=== PATIENT | male | born 1960 | race Caucasian/White ===

== ENCOUNTER 2016-06-11 12:44 | Emergency (ER) | payer OTHER ==
[~2016-06-11] VITALS: Ht 167.6 cm; Wt 64.5 kg
[~2016-06-11 12:44] MED LIST: BACLOFEN10 MG PO; PROAIR HFA8.5 GM IH; ULTRAM50 MG PO
[2016-06-11 13:42] LABS: EOSINOPHIL COUNT 0.2 K/uL (0-0.3); HEMATOCRIT 44.5 % (38.0-50.0); IMMATURE GRANULOCYTE (%) 0.1 % (0.0-0.7); IMMATURE GRANULOCYTE COUNT 0.1 K/uL; LYMPHOCYTE COUNT 1.4 K/uL (1.0-2.8); MCH 34.4 PG (29.0-34.0); MCHC 34.6 G/DL (30.0-36.0); MCV 99.3 FL (86-99); MEAN PLAT.VOLUME 9.1 uM^3 (9.0-12.4); MONOCYTE COUNT 0.5 K/uL (0-0.8); NEUTROPHIL (%) 73.2 % (45-76); NEUTROPHIL COUNT 5.7 K/uL (1.8-6.4); PLATELET COUNT 306 K/uL (156-360); RBC DIS.WIDTH-CV 11.9 % (11.8-14.6); RBC DIS.WIDTH-SD 42.6 % (39-53); RED BLOOD COUNT 4.48 M/uL (4.00-5.50); WHITE BLOOD COUNT 7.9 K/uL (4.1-10.2)
[2016-06-11 13:54] LABS: CHLORIDE 103 mEq/L (99-109); POTASSIUM 4.4 mEq/L (3.7-5.4); SODIUM 135 mEq/L (136-147)
[2016-06-11 13:56] LABS: GLUCOSE 103 mg/dL (70-99)
[2016-06-11 13:57] LABS: ANION GAP 8 MEQ/L (2-14)
[2016-06-11 14:00] LABS: GFR ESTIMATE (CALCULATED) > 59 mL/min/
[2016-06-11 14:01] LABS: UREA NITROGEN (BUN) 9 mg/dL (9-23)
[2016-06-11 15:36] LABS: ADD MIUA? NO; BILIRUBIN NEGATIVE; BLOOD NEGATIVE; COLOR YELLOW ((YELLOW)); GLUCOSE (STRIP) NEGATIVE; KETONES NEGATIVE; LEUKOCYTES NEGATIVE; NITRITE NEGATIVE; PH, URINE 7.5 (5-8); PROTEIN (STRIP) NEGATIVE; SPECIFIC GRAVITY 1.018 (1.000-1.030); UCUL ADDED? NO; UROBILINOGEN 0.2 MG/DL (0.2-1.0)
[2016-06-11] MEDS ORDERED: BACTRIM,SEPT1 TABLET PO (16:59)
[2016-06-11] MEDS ORDERED: OXYCODONE HCL5 MG PO (17:04)
[2016-06-11] MEDS ORDERED: DOCUSATE SODIU100 MG PO (17:04)
[2016-06-11] MEDS ORDERED: ENOXAPARIN40 MG/0.4 SC (17:05)
[2016-06-11] MEDS ORDERED: AMLODIPINE-VAL1 EACH PO (17:05)
[2016-06-11 18:15] VITALS: BP 141/85
== END 2016-06-11 18:38 | disposition home or self-care (01) ==
LOC: EME 12:44
DX: R50.9 Fever, unspecified (principal); Z98.890 Other specified postprocedural states; I10 Essential (primary) hypertension; Z85.830 Personal history of malignant neoplasm of bone; F17.200 Nicotine dependence, unspecified, uncomplicated
CPT/HCPCS: 71010; 80048; 81003; 83605; 85025; 87040; 99281; 99284

== ENCOUNTER 2017-06-27 04:30 | Inpatient (IN) | payer OTHER ==
[~2017-06-27] VITALS: Ht 167.6 cm; Wt 113.0 kg
[~2017-06-27 04:30] MED LIST changes: +AMLODIPINE-VAL1 EACH PO; +BACTRIM,SEPT1 TABLET PO; +DOCUSATE SODIU100 MG PO; +ENOXAPARIN40 MG/0.4 SC; +OXYCODONE HCL5 MG PO; +VALIUM5 MG PO
[2017-06-27 05:43] LABS: MCH 34.9 PG (29.0-34.0); MCHC 34.7 G/DL (30.0-36.0); MCV 100.6 FL (86-99); PLATELET COUNT 165 K/uL (156-360); RBC DIS.WIDTH-CV 12.6 % (11.8-14.6); RBC DIS.WIDTH-SD 47.8 % (39-53); RED BLOOD COUNT 4.87 M/uL (4.00-5.50); WHITE BLOOD COUNT 8.1 K/uL (4.1-10.2)
[2017-06-27 05:58] LABS: TROP-I INTERPRETATION NEGATIVE; TROPONIN-I 0.05 ng/mL (0.0-0.30)
[2017-06-27 06:06] LABS: CHLORIDE 99 mEq/L (99-109); POTASSIUM 3.8 mEq/L (3.7-5.4); SODIUM 135 mEq/L (136-147)
[2017-06-27 06:07] LABS: GLUCOSE 129 mg/dL (70-99)
[2017-06-27 06:11] LABS: CREATININE 0.7 mg/dL (0.6-1.3); GFR ESTIMATE (CALCULATED) > 59 mL/min/ (58.99-99999)
[2017-06-27 06:12] LABS: UREA NITROGEN (BUN) 8 mg/dL (9-23)
[2017-06-27] MEDS ORDERED: PERCOCET 5/31 TABLET PO (06:20)
[2017-06-27] MEDS ORDERED: OXYCONTIN20 MG PO (06:21)
[2017-06-27 16:29] VITALS: BP 149/88
[2017-06-27 19:59] VITALS: BP 118/76
[2017-06-27 23:37] VITALS: BP 120/63
[2017-06-28 07:14] LABS: HEMATOCRIT 44.4 % (38.0-50.0); HEMOGLOBIN 14.7 G/DL (12.5-16.6); MCH 34.3 PG (29.0-34.0); MCHC 33.1 G/DL (30.0-36.0); MCV 103.5 FL (86-99); PLATELET COUNT 153 K/uL (156-360); RBC DIS.WIDTH-CV 12.9 % (11.8-14.6); RBC DIS.WIDTH-SD 49.6 % (39-53); RED BLOOD COUNT 4.29 M/uL (4.00-5.50); WHITE BLOOD COUNT 5.6 K/uL (4.1-10.2)
[2017-06-28 07:22] LABS: ALBUMIN 3.3 G/DL (3.2-4.8); ALKALINE PHOSPHATASE 40 IU/L (3-129); ALT (GPT) 10 IU/L (3-49); AST (GOT) 11 IU/L (2-34); CHLORIDE 101 MEQ/L (99-109); CREATININE 0.7 MG/DL (0.6-1.3); DIRECT BILIRUBIN 0.1 mg/dL (0.0-0.3); GFR ESTIMATE (CALCULATED) > 59 mL/min/ (58.99-99999); POTASSIUM 3.6 MEQ/L (3.7-5.4); SODIUM 135 MEQ/L (136-147); TOTAL BILIRUBIN 0.2 MG/DL (0.0-1.0); TOTAL PROTEIN 5.8 G/DL (6.4-8.3); UREA NITROGEN (BUN) 10 mg/dL (9-23)
[2017-06-28 07:32] LABS: GLUCOSE 210 mg/dL (70-99)
[2017-06-28 07:47] VITALS: BP 110/67
[2017-06-28 11:02] LABS: MAGNESIUM 2.2 mg/dl (1.3-2.7)
[2017-06-28 11:08] LABS: PHOSPHORUS 1.9 mg/dL (2.5-4.9)
[2017-06-28 11:10] LABS: INTACT PARATHYROID HORMONE 80 pg/mL (10-69)
[2017-06-28 16:30] VITALS: BP 122/72
[2017-06-28 19:50] VITALS: BP 145/70
[2017-06-28 23:55] VITALS: BP 123/63
[2017-06-29 06:29] LABS: HEMOGLOBIN 14.6 G/DL (12.5-16.6); MCH 33.4 PG (29.0-34.0); MCHC 32.4 G/DL (30.0-36.0); PLATELET COUNT 162 K/uL (156-360); RBC DIS.WIDTH-CV 12.9 % (11.8-14.6); RBC DIS.WIDTH-SD 49.4 % (39-53); RED BLOOD COUNT 4.37 M/uL (4.00-5.50); WHITE BLOOD COUNT 9.8 K/uL (4.1-10.2)
[2017-06-29 06:58] LABS: CHLORIDE 101 MEQ/L (99-109); CREATININE 0.7 MG/DL (0.6-1.3); GFR ESTIMATE (CALCULATED) > 59 mL/min/ (58.99-99999); GLUCOSE 164 mg/dL (70-99); MAGNESIUM 1.9 mg/dl (1.3-2.7); POTASSIUM 3.6 MEQ/L (3.7-5.4); SODIUM 139 MEQ/L (136-147); UREA NITROGEN (BUN) 12 mg/dL (9-23)
[2017-06-29 08:17] VITALS: BP 129/73
[2017-06-29 16:08] VITALS: BP 116/64
[2017-06-30 00:54] VITALS: BP 146/76
[2017-06-30 08:43] VITALS: BP 156/45
[2017-06-30 13:01] VITALS: BP 138/68
[2017-06-30 17:00] VITALS: BP 149/84
[2017-06-30 23:49] VITALS: BP 150/88
[2017-07-01 06:06] LABS: CHLORIDE 96 MEQ/L (99-109); CREATININE 0.7 MG/DL (0.6-1.3); GFR ESTIMATE (CALCULATED) > 59 mL/min/ (58.99-99999); GLUCOSE 138 mg/dL (70-99); POTASSIUM 3.8 MEQ/L (3.7-5.4); SODIUM 138 MEQ/L (136-147); UREA NITROGEN (BUN) 12 mg/dL (9-23)
[2017-07-01 06:12] LABS: BASOPHIL (%) 0.2 % (0-1); EOSINOPHIL (%) 0 % (0-5); HEMATOCRIT 45.6 % (38.0-50.0); IMMATURE GRANULOCYTE (%) 0.2 % (0.0-0.7); LYMPHOCYTE (%) 17.2 % (15-42); MCHC 32.9 G/DL (30.0-36.0); MCV 103.4 FL (86-99); MONOCYTE (%) 8.8 % (3-12); MONOCYTE COUNT 0.5 K/uL (0-0.8); NEUTROPHIL (%) 73.6 % (45-76); NEUTROPHIL COUNT 4.2 K/uL (1.8-6.4); PLATELET COUNT 149 K/uL (156-360); RBC DIS.WIDTH-CV 12.8 % (11.8-14.6); RBC DIS.WIDTH-SD 49.2 % (39-53); RED BLOOD COUNT 4.41 M/uL (4.00-5.50); WHITE BLOOD COUNT 5.7 K/uL (4.1-10.2)
[2017-07-01 09:03] VITALS: BP 155/83
[2017-07-01] MEDS ORDERED: SPIRIVA1 INHALATI IH (09:59)
[2017-07-01] MEDS ORDERED: ADVAIR 250/501 DISK IH (09:59)
[2017-07-01] MEDS ORDERED: PHOSPHA250 MG PO (09:59)
[2017-07-01] MEDS ORDERED: CALCIUM 600+D1 EAC1 PO (09:59)
[2017-07-01] MEDS ORDERED: PREDNISONE5 M1 PO (09:59)
[2017-07-01] MEDS ORDERED: INCRUSE ELLI62.5 MCG IH (13:10)
== END 2017-07-01 14:10 | disposition home health service (06) | DRG 190 ==
LOC: EME → EDBD 04:30 → EDOF 07:26 → 5SOUTH 07:26 → EDOF 07:31 → ENRESERV 07:31 → 5SOUTH 15:26 → ENPENDDIS 07-01 12:05 → 5SOUTH 07-01 14:10
PROVIDERS: Emergency Medicine Emergency Medical Services; Internal Medicine; Physician Assistant
DX: J44.1 Chronic obstructive pulmonary disease with (acute) exacerbation (principal); J96.01 Acute respiratory failure with hypoxia; J44.0 Chronic obstructive pulmonary disease with (acute) lower respiratory infection; J20.9 Acute bronchitis, unspecified; C79.51 Secondary malignant neoplasm of bone; E83.51 Hypocalcemia; E87.6 Hypokalemia; I10 Essential (primary) hypertension; F17.210 Nicotine dependence, cigarettes, uncomplicated; Z85.118 Personal history of other malignant neoplasm of bronchus and lung; Z92.21 Personal history of antineoplastic chemotherapy; Z92.3 Personal history of irradiation
CPT/HCPCS: 71046; 71275; 80048; 80076; 82306; 83605; 83735; 83880; 83970; 84100; 84484; 85025; 85027; 87040; 94640; 94640 76; 94644; 94760; 94799; 99202; 99281; 99284; J0295; J0456; J0610; J1650; J2405; J2920; J2930; J3475; J7040; J7050; J7512; J7644

== ENCOUNTER 2017-10-21 09:34 | Emergency (ER) | payer OTHER ==
[~2017-10-21] VITALS: Ht 167.6 cm; Wt 54.6 kg
[~2017-10-21 09:34] MED LIST changes: +ADVAIR 250/501 DISK IH; +CALCIUM 600+D1 EAC1 PO; +INCRUSE ELLI62.5 MCG IH; +OXYCONTIN20 MG PO; +PERCOCET 5/31 TABLET PO; +PHOSPHA250 MG PO; +PREDNISONE5 M1 PO; +SPIRIVA1 INHALATI IH
[2017-10-21 10:09] LABS: BASOPHIL (%) 0.3 % (0-1); EOSINOPHIL (%) 1.8 % (0-5); EOSINOPHIL COUNT 0.2 K/uL (0-0.3); HEMATOCRIT 45.9 % (38.0-50.0); HEMOGLOBIN 16.3 G/DL (12.5-16.6); IMMATURE GRANULOCYTE (%) 0.2 % (0.0-0.7); LYMPHOCYTE (%) 8.7 % (15-42); LYMPHOCYTE COUNT 0.8 K/uL (1.0-2.8); MCHC 35.5 G/DL (30.0-36.0); MCV 98.5 FL (86-99); MONOCYTE (%) 5.4 % (3-12); MONOCYTE COUNT 0.5 K/uL (0-0.8); NEUTROPHIL (%) 83.6 % (45-76); NEUTROPHIL COUNT 7.4 K/uL (1.8-6.4); RBC DIS.WIDTH-CV 11.5 % (11.8-14.6); RBC DIS.WIDTH-SD 41.9 % (39-53); RED BLOOD COUNT 4.66 M/uL (4.00-5.50); WHITE BLOOD COUNT 8.9 K/uL (4.1-10.2)
[2017-10-21 10:18] LABS: PTT 28.5 SEC (25-37)
[2017-10-21 10:21] LABS: CHLORIDE 102 mEq/L (99-109); POTASSIUM 4.2 mEq/L (3.7-5.4); SODIUM 137 mEq/L (136-147)
[2017-10-21 10:22] LABS: GLUCOSE 103 mg/dL (70-99)
[2017-10-21 10:26] LABS: CREATININE 0.7 mg/dL (0.6-1.3); GFR ESTIMATE (CALCULATED) > 59 mL/min/ (58.99-99999)
[2017-10-21 10:27] LABS: UREA NITROGEN (BUN) 16 mg/dL (9-23)
[2017-10-21 10:31] LABS: TROP-I INTERPRETATION NEGATIVE; TROPONIN-I < 0.01 ng/mL (0.0-0.30)
[2017-10-21 10:51] LABS: PLAT.SUFFICIENCY ADEQUATE; PLATELET COUNT 183 K/uL (156-360)
[2017-10-21 12:45] LABS: TROP-I INTERPRETATION NEGATIVE; TROPONIN-I < 0.01 ng/mL (0.0-0.30)
[2017-10-21] MEDS ORDERED: TYLENOL WITH C1 EACH PO (13:00)
[2017-10-21 13:34] VITALS: BP 148/90
== END 2017-10-21 13:35 | disposition home or self-care (01) ==
LOC: EME → EDBD 09:34 → EME 13:35
PROVIDERS: Emergency Medicine
DX: R07.89 Other chest pain (principal); J44.1 Chronic obstructive pulmonary disease with (acute) exacerbation; Z85.118 Personal history of other malignant neoplasm of bronchus and lung; Z72.0 Tobacco use; I10 Essential (primary) hypertension; Z88.6 Allergy status to analgesic agent
CPT/HCPCS: 71045; 80048; 84484; 85025; 85610; 85730; 93005; 94640; 99281; 99284

== ENCOUNTER 2018-01-03 12:01 | Emergency (ER) | payer OTHER ==
[~2018-01-03] VITALS: Ht 165.1 cm; Wt 49.8 kg
[~2018-01-03 12:01] MED LIST changes: +TYLENOL WITH C1 EACH PO
[2018-01-03 14:44] VITALS: BP 140/90
== END 2018-01-03 15:03 | disposition hospice, home (50) ==
LOC: EME 12:01
DX: C34.90 Malignant neoplasm of unspecified part of unspecified bronchus or lung (principal); C79.51 Secondary malignant neoplasm of bone; J44.9 Chronic obstructive pulmonary disease, unspecified; I10 Essential (primary) hypertension; G89.29 Other chronic pain; F17.200 Nicotine dependence, unspecified, uncomplicated; Z88.6 Allergy status to analgesic agent
CPT/HCPCS: 93005; 94640; 94799; 99281; 99285; J2270; J2405